=== PATIENT | male | born 1975 | race Caucasian/White ===

== ENCOUNTER 2017-02-26 18:19 | Emergency (ER) | payer OTHER, BC ==
[~2017-02-26] VITALS: Ht 172.7 cm; Wt 79.0 kg
[~2017-02-26 18:19] MED LIST: ALPR-411 PO; CLB200 PO; DIPH25CA65 PO; FLX5 PO; LDDP5 TD; OXYC-88 PO
[2017-02-26 18:28] VITALS: TEMP 36.9; Ht 172.7 cm; Wt 79.0 kg
[2017-02-26] MEDS ORDERED: CYCLOBENZAPRINE HCL 10 MG TAB PO STA (19:02)
[2017-02-26] MEDS ORDERED: KETOROLAC TROMETHAMINE 60 MG/2 ML VIAL IM STA (19:02)
[2017-02-26] MEDS ORDERED: MoRPHine SULFATE 10 MG/ML CARP/VIAL IM STA (19:02)
--- NOTE | 2017-02-26 19:06 | EMERGENCY ROOM VISIT NOTE ---
History Report prepared by Leticia: [place] Under the Supervision of: Dr. Yesenia Galaviz M.D. First contact with patient: 18:43 Chief Complaint: BACK PAIN Stated Complaint: BACK PAIN,BACK INJURY,WC History of Present Illness The patient is a 41 year old male who presents to the Emergency Room with complaints of persistent low left back pain that started around 4 and a half hours ago. He says that he thinks he injured himself again, as he had a similar back injury last year. The patient states that he followed-up with orthopedics and was diagnosed at that time with a herniated disc L4-L5. He says that the injury was work-related, just like today. 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 He adds that he felt a bit of burning in his back as well. The patient says that he was brought in via a wheelchair. He adds that he just had an injection for his back last week. He denies losing control of his bladder or bowel. Source of History: patient Onset: 4.5 hours ago Position: back (low left) Symptom Intensity: sudden onset Timing: other (persistent) Note: Associated symptoms: Bilateral leg tingling, left arm tingling. Denies losing control of bladder or bowel. Review of Systems See HPI for pertinent positives & negatives. A total of 10 systems reviewed and were otherwise negative. Past Medical & Surgical Medical Problems: (1) Anxiety Family History Seizures Social History Smoking Status: Never Smoker Alcohol Use: occasionally Marital Status: in relationship Housing Status: lives with family Occupation Status: employed Current/Historical Medications Scheduled Celecoxib (Celebrex), 200 MG PO QAM Cyclobenzaprine HCl (Cyclobenzaprine HCl), 10 MG PO TID Lidocaine (Lidocaine), 1 PATCH TD QAM Scheduled PRN Alprazolam (Xanax), Unknown Dose PO UD PRN for MOOD Diphenhydramine Hcl (Benadryl Allergy), 1 CAP PO UD PRN for BEE STING Oxycodone/Acetaminophen 10MG/325MG (Oxycodone/Acetaminophen 10MG/325MG), 1 TAB PO Q6H PRN for Pain Allergies Coded Allergies: BEE STING (Verified Allergy, Unknown, WEAKNESS, 8/26/16) Physical Exam Vital Signs Date Time Temp Pulse Resp B/P (MAP) Pulse Ox O2 Delivery O2 Flow Rate FiO2 02/26/17 21:13 68 16 118/68 96 02/26/17 19:24 64 22 122/70 97 Room Air 02/26/17 18:28 36.9 93 20 117/83 97 Room Air Physical Exam Vital signs reviewed. General: Well-appearing 41 year old male, in mild distress. HEENT: No scleral icterus, PERRLA, neck supple. Atraumatic. Cardiovascular: Regular rate and rhythm, no extra sounds. Pulmonary: Clear to auscultation bilaterally, normal work of breathing. Abdomen: Soft, nontender, nondistended, positive bowel sounds. Musculoskeletal: Tenderness to palpation over the lumbar paraspinous muscles bilaterally. Mild tenderness to palpation along the low lumbar spine. No stepoff , deformity, or swelling. No peripheral edema. Neurologic: Patient awake alert and oriented x 3. Cranial nerves 2 through 12 grossly intact. Positive straight leg raise bilaterally. Equal strength bilaterally in lower extremities. Skin: Warm, dry, no rash Medical Decision & Procedures ER Provider Diagnostic Interpretation: L-SPINE MIN 4 VIEWS ROUTINE CLINICAL HISTORY: Lumbar back pain radiating into left lower extremity. Injury. COMPARISON: Lumbar spine radiograph and CT of the lumbar spine January 04, 2016. FINDINGS: Alignment of the lumbar spine is anatomic. There is no acute fracture. Vertebral body heights are maintained. Disc spaces are preserved. There is mild multilevel endplate osteophytosis. Sacroiliac joints are intact. IMPRESSION: 1. No acute lumbar spine fracture or subluxation. 2. Mild multilevel degenerative disc disease of the lumbar spine. Electronically signed by: Lenin Farrell M.D. 02/26/2017 8:11 PM Dictated Date/Time: 02/26/2017 8:10 PM Medications Administered Medications (Trade) Dose Ordered Sig/Jany Route Start Time Stop Time Status Last Admin Dose Admin Cyclobenzaprine HCl (Flexeril Tab) 10 mg NOW STAT PO 02/26/17 19:02 02/26/17 19:04 DC 02/26/17 19:16 10 MG Morphine Sulfate (MoRPHine SULFATE INJ) 10 mg NOW STAT IM 02/26/17 19:02 02/26/17 19:04 DC 02/26/17 19:18 10 MG Ketorolac Tromethamine (Toradol Inj) 60 mg NOW STAT IM 02/26/17 19:02 02/26/17 19:04 DC 02/26/17 19:17 60 MG Acetaminophen/ Hydrocodone Bitart ([place] 5/325mg Home Pack) 1 homepack UD ONCE PO 02/26/17 20:45 02/26/17 20:46 DC 02/26/17 21:11 1 HOMEPACK Cyclobenzaprine HCl (FLEXERIL 10MG Home Pack) 1 homepack UD ONCE PO 02/26/17 20:45 02/26/17 20:46 DC 02/26/17 21:11 1 [facility] 1899: Past medical records reviewed. The patient was evaluated in room A3. A complete history and physical examination was performed. 1901: Ordered Toradol Inj 60 mg IM, Morphine Sulfate Inj 10 mg IM, Flexeril Tab 10 mg PO. Medical Decision Differential diagnosis: Etiologies such as musculoskeletal, disc herniation, fracture, aortic disease, metastatic disease, cord compression, discitis, infection, renal colic, gastrointestinal, acute exacerbation of chronic back pain, sciatica, cauda equina, as well as others were entertained. This patient was evaluated and appeared to be in significant discomfort. Patient was given IM morphine, oral Flexeril and 60 mg of IM Toradol. Lumbar spine x-rays were performed and reveal no acute fracture or dislocation. The patient had an MRI at the end of 2015 which was reviewed. He does have a L4/L5 disc herniation. At this time the patient has no symptoms of cauda equina. He is established with Dr. Ford of pain management. He was encouraged to make an appointment with his orthopedic spine surgeon as well as Dr. Ford. He was discharged on a prednisone taper and given a short prescription for hydrocodone and Flexeril. He was advised not to drive on these medications. He was given 1 week off of work. He will return to the ER for worsening of symptoms or any medical concerns. Medication Reconcilliation Current Medication List: was personally reviewed by me Blood Pressure Screening Patient's blood pressure: Normal blood pressure Impression Primary Impression: Lumbar back pain Scribe Attestation The scribe's documentation has been prepared under my direction and personally reviewed by me in its entirety. I confirm that the note above accurately reflects all work, treatment, procedures, and medical decision making performed by me. Departure Information Referrals No Doctor, Assigned (PCP) Patient Instructions [facility]
--- NOTE | 2017-02-26 20:12 | DIAGNOSTIC IMAGING REPORT ---
L-SPINE MIN 4 VIEWS ROUTINE CLINICAL HISTORY: Lumbar back pain radiating into left lower extremity. Injury. COMPARISON: Lumbar spine radiograph and CT of the lumbar spine January 04, 2016. FINDINGS: Alignment of the lumbar spine is anatomic. There is no acute fracture. Vertebral body heights are maintained. Disc spaces are preserved. There is mild multilevel endplate osteophytosis. Sacroiliac joints are intact. IMPRESSION: 1. No acute lumbar spine fracture or subluxation. 2. Mild multilevel degenerative disc disease of the lumbar spine. Electronically signed by: Lenin Farrell M.D. 02/26/2017 8:11 PM Dictated Date/Time: 02/26/2017 8:10 PM
[2017-02-26] MEDS ORDERED: NORCO 5/325MG HOME PACK PO ONE (20:45)
[2017-02-26] MEDS ORDERED: FLEXERIL HOME PACK 10 MG VIAL PO ONE (20:45)
[2017-02-26 21:13] VITALS: BP 118/68; PULSE 68; O2SAT 96
== END 2017-02-26 21:14 | disposition home or self-care (01) ==
LOC: C.EDB 18:21 → C.EDA 21:14
DX: M54.5 Low back pain (principal); M51.26 Other intervertebral disc displacement, lumbar region; F41.9 Anxiety disorder, unspecified; Z82.0 Family history of epilepsy and other diseases of the nervous system

== ENCOUNTER 2018-11-18 12:23 | Observation (INO) ==
--- OUTSIDE RECORDS SUMMARY | 2018-11-18 12:26 | External Medical Summary | Continuity of Care Document ---
:1975 Author Name Nuha Strickland, Provider Address Unavailable Unavailable , Care Team Providers Name Role Phone Dominic Joe II, DO Unavailable [email or web address] [email or web address], [email or web address] Unavailable Unavailable Unavailable Unavailable Unavailable Problems Active medical history not documented Allergies and Adverse Reactions Allergy history not documented Medications Medications not documented Procedures Procedures not documented Immunizations Immunizations not documented Plan of Treatment Planned Observations Planned Goals not documented Results No Known Results Results not documented Encounters Appointment; Dominic Joe II, DO 08-Sep-2018 14:20 Encounter Diagnosis: Problem not documented
[2018-11-18] MEDS ORDERED: HYDROmorphone INJ 0.5 MG/0.5 ML SYR IV STA (13:43)
[2018-11-18] MEDS ORDERED: KETOROLAC TROMETHAMINE 15 MG/ML VIAL IV STA (13:43)
[2018-11-18] MEDS ORDERED: ONDANSETRON INJ 2 MG/ML 2 ML VIAL IV STA (13:43)
--- NOTE | 2018-11-18 14:38 | XRay Report ---
LUMBAR SPINE 3 VIEWS HISTORY: back pain eval for fx COMPARISON: Lumbar spine 02/26/2017. FINDINGS: There is no fracture. No subluxation. Mild disc space narrowing at L4-L5 and L5-S1. This i s similar to the prior study. IMPRESSION: No fracture or subluxation within the lumbar spine. Mild degenerative disc disease within the lower l umbar spine, unchanged. Electronically signed by: Jamison Noguera M.D. 11/18/2018 2:37 PM
[2018-11-18] MEDS ORDERED: HYDROmorphone INJ 1 MG/ML SYRINGE IV STA (14:44)
[2018-11-18] MEDS ORDERED: SODIUM CHLORIDE 0.9% 1000ML 1,000 ML IV ONE (14:44)
--- NOTE | 2018-11-18 16:29 | History & Physical Report ---
Date of Service November 18, 2018 Assessment & Plan (1) Intractable back pain: Patient has had DJD of lumbar spine over the last 3 years but it had largely been controlled/quiescent of late. However, the patient acutely developed severe lumbar back pain today with radicular symptoms on the left side after he had been moving wood at his mother/father's home. He had severe, intermittent episodes of back pain with spasm during my assessment and was unable to walk due to this pain. While finishing the admission I gave him baclofen 10mg PO x 1 with some relief of symptoms. Prior to that he had received dilaudid for total of 1.5mg and toradol w/o relief. I am concerned he has radiculopathy from L5-S1 DJD / herniated disc on the left side. He does not have red flags on history or exam to suggest acute cauda equina syndrome, etc. Plan - * decadron 6mg IV x 1 now * then decadron 6mg IV q6h at least for 12-24 hours * tylenol 1gm TID * zantac BID for GI prophylaxis given the steroid use * dilaudid 0.5mg IV q3h prn * baclofen 10mg po q8h prn muscle spasm * k-pad heat * gabapentin 100mg TID first dose tonight for neuropathic pain * toradol 30mg IV q6h prn * pain management consult requested * MRI lumbar spine to further delineate his anatomy and problem areas I offered to consult orthopedics spine however he and his declined. They would prefer to consult with neurosurgery after discharge if he needs anything surgical in the future. OOB to chair as tolerated tonight/tomorrow. Will need PT/OT evaluations. Present on Admission?: Yes (2) Degenerative disc disease, lumbar: history of, now with recurrent severe back pain- see above in "intractable back pain". Present on Admission?: Yes (3) Spasm of back muscles: see discussion above in "intractable back pain" baclofen, k-pad heat, steroids, etc Present on Admission?: Yes (4) Anxiety: continue home prozac he admits to noncompliance with this medication at home (5) Tobacco use disorder: offered nicoderm patch - declined by patient director counseling bureau to quit (6) Hypokalemia: replace repeat level AM (7) DVT prophylaxis: SCDs for now in the event he does indeed have herniated disc and needs an injection, etc place on observation status for now updated with plan of care History of Present Illness Chief Complaint: back pain Primary Care Provider: Britt De La Rosa 43yo male with history of lumbar spine disease s/p steroid injections in the past (2016 and earlier) who presents with acute back pain starting this am about 0930. He was moving wood at his parent's home when the pain started. The logs/wood were not heavy however he moved about 15 pieces when the pain started. Prior to this his back had been feeling well over the last few weeks/months. Pain is over the lumbar spine with some paraspinal pain on the left side. He has had groin pain on the left side starting in the ER after his x-rays were completed. He reports mild left heel discomfort/numbness. However he denies classic sciatica symptoms with pain going down the entire left leg. No numbness in other locations. Throughout the encounter he has had waves of muscle spasm and shouts out in pain/agony from such. No bowel/bladder incontinence today. No fevers or chills. Dr Palafox previously performed his lumbar steroid injections several years ago at [facility]. Patient never required surgery for his prior lumbar DJD. Allergies Allergy/AdvReac Type Severity Reaction Status Date / Time No Known Allergies Allergy Unverified 11/18/18 13:07 Home Medications Home Medications Medication Instructions Recorded Confirmed Type fluoxetine 20 mg PO QAM 11/18/18 11/18/18 History hydrocodone-acetaminophen [[place]] 1 tab PO UD PRN 11/18/18 11/18/18 History Past Med/Surg History Medical History Herniated disc Anxiety (Chronic) Surgical History History of selective injection of anesthetic agent around lumbar nerve root Family History Mother Seizure Father Diabetes DJD (degenerative joint disease), lumbar Social History Preferred Language: Tunisian marital status: marital status details: Nayeli Hilliard with (4 kids) Current Living Situation: Spouse current occupational status: employed 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 Feels Safe at Home: Yes Smoking Status: Current some day smoker Tobacco Type: cigarettes Age Started Using Tobacco: 18 Cigarettes Per Day: <1 Hx Alcohol Use: Yes Alcohol type: beer Alcohol Intake Frequency: Holidays/Special Occasions Hx Substance Use: Yes substance use type: marijuana Review of Systems Constitutional: no fever, no weight loss and no weight gain Eyes: no worsening vision Ear, Nose, Mouth, Throat: no sore throat and no dysphagia Respiratory: no cough and no dyspnea Cardiovascular: no chest pain at rest Gastrointestinal: no abdominal pain, no nausea and no vomiting Genitourinary: no dysuria Musculoskeletal: + back pain Integumentary: no rash Neurologic: + paresthesia (left foot) Psychiatric: no depression and no anxiety Endocrine: no diabetes Hematologic / Lymphatic: no easy bleeding and no easy bruising Physical Exam Constitutional: well developed, well nourished and + acute distress (cries out in pain about every 2-3 minutes); no altered mental status Eyes: PERRL ENMT: external ear and nose normal, oropharynx normal Neck: trachea midline, no thyromegaly Respiratory: normal respiratory effort, lungs clear to auscultation Cardiovascular: Rate/Rhythm: regular rate and regular rhythm Heart Sounds: normal S1 and normal S2; no murmur Vessels: posterior tibial pulses present and dorsalis pedis pulses present; no JVD Gastrointestinal (Abdomen): normal bowel sounds, soft, nontender, no hepatosplenomegaly Musculoskeletal: back - no thoracic spine tenderness to palpation. Lumbar spine - exquisite pain over L4/L5 area with pain to palpation. Pain over paraspinal region on left with palpable spasm. Any movement of his left leg (passive) causes severe pain in low back. I cannot perform a straight leg raise on left due to pain. However, he denies radicular pain with passive flexion of the hip. I am able to place the right leg through normal passive ROM without discomfort. Strength all muscle groups of b/l legs 5/5 including hip flexion, knee extension, and ankle dorsiflexion/plantarflexion. Skin: no rashes, warm and dry tattoos present Neurologic: deep tendon reflexes 2+ bilaterally (patellar and achilles b/l (modestly brisk b/l)); no focal motor deficits (strength 5/5 all muscle groups of B/l LEs) Motor/Sensory: + sensory deficit (left heel w/ decreased sensation) sensation nl to light touch L3, L4, L5 dermatomes Results & Data Vital Signs (Past 12 Hours) Vital Signs Pulse Pulse Resp BP BP Pulse Ox 11/18/18 14:43 51 L 20 104/67 96 11/18/18 14:00 64 18 118/70 98 11/18/18 12:49 65 20 128/76 100 Laboratory Results Laboratory Results - last 24 hr 11/18/18 11/18/18 11/18/18 12:41 12:41 12:41 WBC 7.04 RBC 5.01 Hgb 15.6 Hct 44.3 MCV 88.4 MCH 31.1 MCHC 35.2 RDW Std Deviation 40.4 RDW Coeff of [place] 12.6 Plt Count 205 MPV 12.6 H Immature Gran % (Auto) 0.1 Neut % (Auto) 59.3 Lymph % (Auto) 31.0 [place] % (Auto) 7.2 Eos % (Auto) 2.3 Baso % (Auto) 0.1 Immature Gran # (Auto) 0.01 Neut # (Auto) 4.17 Lymph # (Auto) 2.18 [place] # (Auto) 0.51 Eos # (Auto) 0.16 Baso # (Auto) 0.01 PT 10.4 INR 1.0 Sodium 139 Potassium 3.4 L Chloride 109 H Carbon Dioxide 25 Anion Gap 5.0 BUN 14 Creatinine 0.84 Est Cr Clr Drug Dosing 124.1 Est GFR ( Amer) 124.3 Est GFR (Non-Af Amer) 107.2 BUN/Creatinine Ratio 16.6 Glucose 103 H Calcium 8.6 Magnesium 2.2 Diagnostic Findings lumbar spine x-rays - IMPRESSION: No fracture or subluxation within the lumbar spine. Mild degenerative disc disease within the lower lumbar spine, unchanged. Code Status & VTE Plan Code Status full code VTE Prophylaxis Plan VTE Prophylaxis will be ordered: Yes PG Care Time/CCT Total # of Minutes Spent Total Time Spent with Patient: Total time spent is greater than 50% in coordination of care (as documented) at patient's floor/unit and/or counseling patient:
[2018-11-18] MEDS ORDERED: BACLOFEN 10 MG TAB PO STA (16:31)
[2018-11-18] MEDS ORDERED: DEXAMETHASONE SOD INJ 4 MG/ML VIAL IV STA (16:56)
--- NOTE | 2018-11-18 17:08 | Emergency Department Note ---
Entered by Yovana Walsh acting as a scribe for Andrew Tracy MD History of Present Illness General Chief complaint: Back Injury/Pain Stated complaint: back pain Source: patient Mode of arrival: ambulatory Limitations: no limitations History of Present Illness Provider complaint: Back Injury Onset (ago): hour(s) 4 Location: foot, lower extremity and left Radiation: extremity (left leg) Severity: severe Pain Consistency: + constant Maximum Pain Intensity: 10 Current Pain Intensity: 10 Quality: + sharp Relieved By: + none Exacerbated By: + movement Associated symptoms: + weakness (due to the pain) and + other (- abdominal pain, - fecal or urinary incontinence, +numbness in left heel); no fever/chills and no nausea/vomiting Treatments prior to arrival: none The patient is a 43 year old male who presents to the Emergency Department via ambulance after injuring his back. 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 He describes the pain as sharp and radiating down his left leg. The patient did not experience any urinary or fecal incontinence. The patient also states that his left heel is numb which she describes as a tingling feeling. The patient feels weak from the pain and the pain worsens with movement. The patient has a prior history of L4-L5 disc herniation. He states the pain feels very similar to that. The fever denies any stomach pain, fever, or vomiting. The patient denies having saddle anesthesia. The patient rates his pain as a 7 out of 10 in severity. He states he did not fall today or lift the piece of wood. Home Medications Home Medications Medication Instructions Recorded Confirmed Type fluoxetine 20 mg PO QAM 11/18/18 11/18/18 History hydrocodone-acetaminophen [[place]] 1 tab PO UD PRN 11/18/18 11/18/18 History Allergies Allergy/AdvReac Type Severity Reaction Status Date / Time No Known Allergies Allergy Unverified 11/18/18 13:07 Past Med/Surg History Medical History Herniated disc Anxiety (Chronic) Surgical History History of selective injection of anesthetic agent around lumbar nerve root Family History Mother Seizure Father Diabetes DJD (degenerative joint disease), lumbar Social History Preferred Language: [place] marital status: marital status details: Nayeli Hilliard with (4 kids) Current Living Situation: Spouse current occupational status: employed 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 and A total of 10 systems reviewed and were otherwise negative Physical Exam Vital Signs Vital Signs - 24 hr 11/18/18 12:49 11/18/18 14:00 11/18/18 14:43 Sepsis Recent Fever Within 48 Hours No Sepsis New/Unexplained Change in Mental Status No Sepsis Action Taken by Nursing No Action Required Pulse Rate 65 Pulse Rate [Left Finger] 64 51 L Respiratory Rate 20 18 20 Blood Pressure 128/76 Blood Pressure [Left Arm] 118/70 104/67 Blood Pressure Mean 93 Blood Pressure Mean [Left Arm] 86 79 Pulse Oximetry 100 98 96 Oxygen Delivery Method Room Air Room Air Room Air Constitutional: Vital signs reviewed. Eyes: Pupils are equal round reactive to light. Conjunctiva are noninjected. ENT: Pharynx is clear without erythema or exudate. Mucous membranes are moist. Neck supple without meningeal signs. Respiratory: Clear to auscultation bilaterally. Breath sounds are equal bilaterally. Cardiovascular: Regular rate and rhythm. No rubs or gallops. GI: Soft, nondistended and nontender. Bowel sounds are present. Musculoskeletal: No peripheral edema. No lower extremity tenderness. Integumentary: No cyanosis. Neurological: The patient is awake and alert. No focal deficits. Difficult to assess motor strength due to pain but he moves both legs at all joints. Sensati on is intact throughout the lower extremities including the left heel and DTRs 2+ in ankles and knees. Psychiatric: Normal affect. Course 1336: The patient was evaluated in room A09B. A physical exam was performed. 1442: I reassessed the patient. He rates his pain as a 10 out of 10 in severity. 1510: I reassessed the patient and discussed going home because he stated he feels better. The patient tried to get up and had a significant increase in pain and felt that he will not be able to take care of himself at home. 1612: I spoke with Dr. Paul, [facility] Hospitalist, about the patient's case and he agreed to accept the patient for further evaluation. 1618: The patient was admitted. Consultations Consultation #1: 1612: I spoke with Dr. Paul, [facility] Hospitalist, about the patient's case and he agreed to accept the patient for further evaluation. Time: 16:12 Administered Medications Discontinued Medications Baclofen (Lioresal) 10 mg PO ONE STA Stop: 11/18/18 16:32 Last Admin: 11/18/18 16:51 Dose: 10 mg Documented by: [id number] Hydromorphone HCl (Dilaudid) 0.5 mg IV NOW STA Stop: 11/18/18 13:44 Last Admin: 11/18/18 13:56 Dose: 0.5 mg Documented by: [id number] Hydromorphone HCl (Dilaudid) 1 mg IV NOW STA Stop: 11/18/18 14:45 Last Admin: 11/18/18 15:00 Dose: 1 mg Documented by: [id number] Sodium Chloride (Nss 1000ml) 1,000 mls @ 999 mls/hr IV .Q1H1M ONE Stop: 11/18/18 15:44 Last Infusion: 11/18/18 16:17 Dose: 0 mls/hr Documented by: [id number] Admin: 11/18/18 15:00 Dose: 999 mls/hr Documented by: [id number] Ketorolac Tromethamine (Toradol) 10 mg IV ONE STA Stop: 11/18/18 13:44 Last Admin: 11/18/18 13:56 Dose: 10 mg Documented by: [id number] Ondansetron HCl (Zofran) 4 mg IV NOW STA Stop: 11/18/18 13:44 Last Admin: 11/18/18 13:56 Dose: 4 mg Documented by: [id number] Medical Decision Making Differential Diagnosis Differential Diagnosis: Lumbar disc disease, radiculopathy, pathologic fracture, Cauda equina syndrome, strain Medical Records Attestation: I reviewed the patient's medical records. I did perform a limited focused review of portions of the patient's old chart on the electronic medical record. The patient was admitted in December 2015 for intractable back pain after lifting something heavy. The patient was treated with Dilaudid during the hospitalization placed on a steroid when discharged. Home Medications Current Medication List: was personally reviewed by me Imaging Data Attestation: I personally reviewed and interpreted this imaging study as follows: Radiologist's Impression: Radiology results as stated below per my review and the radiologist's interpretation: LUMBAR SPINE 3 VIEWS HISTORY: back pain eval for fx COMPARISON: Lumbar spine 02/26/2017. FINDINGS: There is no fracture. No subluxation. Mild disc space narrowing at L4-L5 and L5-S1. This is similar to the prior study. IMPRESSION: No fracture or subluxation within the lumbar spine. Mild degenerative disc disease within the lower lumbar spine, unchanged. Electronically signed by: Jamison Noguera M.D. 11/18/2018 2:37 PM Blood Pressure Blood Pressure Findings: Normal blood pressure MDM Narrative I did evaluate the patient as noted above. The patient is presenting with left- sided low back pain with some paresthesias to his left foot. He has prior history of disc herniation and states it feels similar. His pain is worse with any type of movement. He has no symptoms suggestive of cauda equina syndrome and appears to be neurologically intact. He was brought in by ambulance. IV access was established by the paramedics. I did treat the patient with Dilaudid 0.5 mg IV and Zofran 4 mg IV. I did order and personally reviewed the images of the patient's lumbar spine x-rays as described above. He does have some disc disease but no evidence of pathologic fracture. I did reassess the patient. He states that he feels worse after he came back from x-ray. He was given Dilaudid 1 mg IV. I did reassess the patient. He did state he felt better. We were going to discharge him but when he attempted to get up he had significantly wor se pain and felt he could not take care of himself at home. I therefore discussed the case with the employment evaluator/case manager and hospitalist for inpatient care. Impression & Plan Intractable back pain, Degenerative disc disease, lumbar Discharge Plan Visit Data Chief Complaint: Back Injury/Pain Stated Complaint: back pain ED Provider: Andrew Tracy Discharge Problem: Intractable back pain, Degenerative disc disease, lumbar Patient Disposition: Being Evaluated by Hospitalist Forms Stand Alone Forms: [facility] Prescriptions Prescriptions: No Action hydrocodone-acetaminophen [[place]] 5-325 mg Tablet 1 tab PO UD PRN (Reason: Pain) RF: 0 fluoxetine 20 mg capsule 20 mg PO QAM RF: 0 Referrals Referrals: Britt De La Rosa [Primary Care Provider] - The scribe's documentation has been prepared under my direction and personally reviewed by me in its entirety. I confirm that the note above accurately reflects all work, treatment, procedures, and medical decision making performed by me.
[2018-11-18 17:37] LABS: Basophils # (auto) 0.01 K/uL (0-0.2); Basophils % (auto) 0.1 %; Eosinophils # (auto) 0.16 K/uL (0-0.5); Eosinophils % (auto) 2.3 %; Hematocrit (blood only) 44.3 % (42-52); Hemoglobin 15.6 g/dL (14.0-18.0); Immature Granulocytes # (auto) 0.01 K/uL (0.00-0.02); Immature Granulocytes % (auto) 0.1 %; Lymphocytes # (auto) 2.18 K/uL (1.2-3.4); Mean Corpuscular Hgb Conc 35.2 g/dL (32-36); Mean Corpuscular Volume 88.4 fL (80-100); Mean Platelet Volume 12.6 fL (7.4-10.4); Monocytes # (auto) 0.51 K/uL (0.11-0.59); Monocytes % (auto) 7.2 %; Neutrophils # (auto) 4.17 K/uL (1.4-6.5); Neutrophils % (auto) 59.3 %; Platelet Count 205 K/uL (130-400); RDW Coefficient of Variation 12.6 % (11.5-14.5); RDW Standard Deviation 40.4 fL (36.4-46.3); Red Blood Count 5.01 M/uL (4.7-6.1); White Blood Count 7.04 K/uL (4.8-10.8)
[2018-11-18 17:48] LABS: BUN Creatinine Ratio 16.6 (10-20); Calcium 8.6 mg/dl (8.5-10.1); Creatinine Clr Calc Pharmacy 124.1 ml/min; Est GFR (African American) 124.3; Est GFR (Non-African American) 107.2; Magnesium 2.2 mg/dl (1.8-2.4); Potassium 3.4 mmol/L (3.5-5.1)
[2018-11-18 17:52] LABS: Prothrombin Time 10.4 Seconds (9.0-12.0)
[2018-11-18] MEDS ORDERED: POTASSIUM CHLORIDE 20 MEQ TABCR PO STA (18:54)
[2018-11-18] MEDS: KETOROLAC 30 MG/ML VIAL IV PRN (19:34)
--- NOTE | 2018-11-18 20:34 | Magnetic Resonance Report ---
MR lumbar spine wo con CLINICAL HISTORY: 43 years-old Male presenting with acute LBP; s1 dermatome numbness on left. TECHNIQUE: Multisequence, multiplanar MR imaging of the lumbar spine was performed without the use of intravenous contrast. IV contrast: None. COMPARISON: Plain radiographs from earlier today and MR from 03/21/2016. FINDINGS: Localizer images: Unremarkable. Normal lumbar lordosis. Vertebral bodies maintain normal height, alignment, and bone marrow signal in tensity. Intervertebral discs preserved with the exception of L4-5, where there is mild intervertebra l disc height loss accompanied by desiccation. Annular fissure is noted at this level. There is no ne ural foraminal or spinal canal narrowing at any of the levels apart from L4-5. At L4-5, mild broad-ba sed disc protrusion mildly effaces the ventral thecal sac and the lateral recesses. There is also sli ghtly eccentric greater effacement of the right neural foramen. Mild bilateral neural foraminal narro wing minimally greater on the right. Spinal cord terminates in good position at T12. Cauda equina normal morphology. No paraspinal muscle edema. T2 flow-voids within the vasculature preserved. Remaining visualized soft tissues within val l limits. IMPRESSION: Focal degenerative changes at L4-5 with an annular fissure. Mild effacement of the lateral recesses a nd bilateral neural foramina. No evidence of severe spinal canal stenosis. Electronically signed by: Giovani Hollins M.D. 11/18/2018 8:32 PM
[2018-11-18] MEDS: GABAPENTIN 100 MG CAP PO SCH (20:49)
[2018-11-18] MEDS: ACETAMINOPHEN 500 MG TAB PO SCH (20:49)
[2018-11-18] MEDS: HYDROmorphone INJ 0.5 MG/0.5 ML SYR IV PRN (20:53)
[2018-11-18] MEDS: ONDANSETRON INJ 2 MG/ML 2 ML VIAL IV PRN (20:57)
[2018-11-19] MEDS ORDERED: BACLOFEN 10 MG TAB PO PRN
[2018-11-19] MEDS: DEXAMETHASONE SOD PHOSPHATE 6 MG in SYRINGE 0 ML IV SCH ×3 (00:19→10:33)
[2018-11-19] MEDS: HYDROmorphone INJ 0.5 MG/0.5 ML SYR IV PRN ×3 (00:38→10:33)
[2018-11-19] MEDS ORDERED: BUPIVACAINE 0.5 % 5 MG/1 ML MPF 30ML VIAL ONE (07:52)
[2018-11-19] MEDS ORDERED: TRIAMCINOLONE ACET 40 MG/ML VIAL ONE (07:52)
[2018-11-19] MEDS: BACLOFEN 10 MG TAB PO PRN ×2 (08:22→18:41)
--- NOTE | 2018-11-19 08:37 | Pain Management Consultation ---
Date of Consultation November 19, 2018 Assessment & Plan (1) Spasm of back muscles: 1. X-ray and MRI studies were reviewed with the patient. There is no acute lumbar disc herniation or evidence of central spinal canal or foraminal stenosis of significance based on imaging studies. Likely etiology of myofascial spasm/acute strain was discussed 2. Recommend trigger point injections at today's visit and he was agreeable. Consent was obtained after discussing the inherent risks and potential benefits. Refer to procedure note below. 3. Will increase baclofen to 20 mg every 8H 4. Continue with IV Decadron and would recommend discharge with Medrol Dosepak 5. Would not recommend pursuing lumbar GHAZALA at this time as he has no evidence of radiculopathy. Consideration of further interventional treatment in the outpatient setting pending response 6. We discussed the role his chronic anxiety plays in myofascial pain. He was encouraged to discuss further treatment of his anxiety and insomnia with his family care physician upon discharge. TRIGGER POINT INJECTION Diagnosis: Myofascial pain with spasm Side/Level injected: Right lumbar paravertebral 2, left paravertebral 21, right quadratus lumborum x2, left quadratus lumborum x2 Surgeon: Ifeanyi MILLER Prior to starting, the Patients diagnosis and the procedure were reviewed with the patient in detail. Possible risks and complications including infection, bleeding, damage to surrounding structures and increased pain were discussed. Alternative therapies were also reviewed. Patients questions were answered and they agreed to proceed. Informed consent was obtained. Allergies and medication list was reviewed. The patient was brought to the procedure room and placed in prone position. Immediately prior to starting the procedure, a ``time out was conducted with the staff and the patient where the patient was identified, proposed procedure was verified, consent was reviewed and the proper site for the planned procedure was identified. Patient was not given any intravenous sedation and constant verbal contact was maintained throughout the procedure. On examination, no signs of skin breakdown or infection were noted at the injection site. The site was cleansed with ChloraPrep. Palpation over the site produced patients typical pain. Using an 1.5 inch 25-gauge needle, the above muscles were injected in similar fashion after negative aspiration for blood in fanlike fashion with 1-1.5 mL of a combination of 7 mL of 0.5% bupivacaine containing 40 mg of Kenalog and 30 mg of ketorolac without complication. Needle was withdrawn and hemostasis noted. Band-Aid was applied where needed. Patient tolerated the procedure uneventfully without complications. Present on Admission?: Yes (2) Intractable back pain: Present on Admission?: Yes (3) Myofascial pain: Present on Admission?: Yes (4) Anxiety: Present on Admission?: Yes History of Present Illness Reason for Consultation: Intractable Low Back Pain Requesting Physician: Steve Vargas MD Attending Physician: Jan Syed DO History of Present Illness Mr. Rush is a 43 year old white male who was admitted due to acute onset of axi al low back pain. The patient reports that he was helping his parents move some wood which was not heavy and minimally repetitive. 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 This led to the ambulance being summoned and transferred to the emergency room for evaluati on. Patient has had persistent intermittent episodes of sharp, shooting and spasming type pain in the axial lumbar spine without a radicular or radiating component. He does describing some numbness/tingling sensation affecting the left heel but he denies a true radicular pattern to any pain or paresthesia complaints. The patient reports a history of intermittent similar axial low back pain over the past few years. 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 Patient is currently rating his pain between a 6-9/10. He is able to find a comfortable position with minimal discomfort. Any movement exacerbates his pain. Patient reports that he had prior epidural steroid injection performed by Dr. Ford on multiple occasions a few years ago. His symptoms have been relatively well controlled since that time. Patient denies any bowel or bladder incontinence or saddle anesthesias. He has participated in physical therapy in the past without significant noted improvement. Patient has history of long- standing anxiety. He is inconsistent with dosing of his anxiety medication. The patient further reports poor sleep quality and quantity due to mind racing activities of chronic duration. Patient denies radiation of pain into the abdominal, or groin region. He reports minimal radiation into the gluteal region bilaterally. Patient has no further constitutional complaints at this time. Plan of care discussed with Dr. Beth Perry. Pain Assessment Full Body Front + Back: 1. Axial low back pain left greater than right sided Pain scale - at its best (0-10): 6 Pain scale - at its worst (0-10): 9 Allergies Allergy/AdvReac Type Severity Reaction Status Date / Time No Known Allergies Allergy Unverified 11/18/18 13:07 Home Medications Home Medications Medication Instructions Recorded Confirmed Type fluoxetine 20 mg PO QAM 11/18/18 11/18/18 History hydrocodone-acetaminophen [[place]] 1 tab PO UD PRN 11/18/18 11/18/18 History Pain History Pain Intensity Pain scale - at its best (0-10): 6 Pain scale - at its worst (0-10): 9 Patient History Medical History Myofascial pain Hypokalemia Tobacco use disorder Intractable back pain (Acute) Degenerative disc disease, lumbar (Acute) Herniated disc (Chronic) Spasm of back muscles (Acute) Back strain (Acute) Anxiety (Chronic) Surgical History History of selective injection of anesthetic agent around lumbar nerve root (Resolved) Family History Mother Seizure Father Diabetes DJD (degenerative joint disease), lumbar Social History Preferred Language: Ukrainian Communication Ability: Effective 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 Beliefs That Will Affect Care: None marital status: marital status details: Nayeli Hilliard with (4 kids) Current Living Situation: Family current occupational status: employed 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 Other Information That Helps Us Care for You: No Feels Safe at Home: Yes Safety Concerns: Feels Safe At This Time Smoking Status: Light tobacco smoker Tobacco Type: cigarettes Age Started Using Tobacco: 18 Cigarettes Per Day: 1 per week Do You Dip or Chew Tobacco: No Second Hand Exposure: Yes Tobacco Cessation Education Requested by Patient: No Hx Alcohol Use: Yes Alcohol type: beer Alcohol Intake Frequency: H olidays/Special Occasions Hx Substance Use: Yes substance use type: marijuana Last Used Substance: Days (ago) Physical Exam Physical Exam: General: Patient sitting quietly in exam room in no acute distress. Speech and thought process appropriate. Mood and affect appropriate. Patient appears to be significantly anxious. Cognition intact. Patient appears to have discomfort with positional change from supine to sitting upon entering the room accompanied by nursing staff. Head: Normocephalic and atraumatic. ENT: No evidence of nasal or oral mucosal lesions. Mucous membranes are moist. Eyes: Pupils equal round reactive to light. Neck: Supple without adenopathy and full range of motion. Abdomen: Soft and nondistended. No organomegaly. Bowel sounds active. Back/spine: Slight loss of lordosis. Nontender over the midline. No focal facet or SI joint tenderness. Patient tender to palpation in the paravertebral musculature of the lower lumbar spine extending into the quadratus lumborum bilaterally. Slightly hyperalgesic response. There is evidence of spasm and myoneural trigger points evidenced upon palpation. Limited range of motion in all planes with apprehension. Lower extremities: SLR increased axial low back pain bilaterally. Strength testing 5/5 with dorsiflexion, plantarflexion, EHL testing and knee fl exion/extension. Increased axial pain appreciated with hip flexion extension with apprehensive movement. Sensation intact without focal deficit. No evidence of edema, erythema or skin breakdown. Neurologic: Cranial nerves grossly intact. Ambulatory function significantly guarded with positional changing from supine to sitting. Results Diagnostic Review MRI: non enhanced and reports reviewed MRI Findings: [place], [place] [phone] Magnetic Resonance Report Patient: ADARSH RUSH Date: 11/18/18 MR#: [id number]: [address] Acct ID:[id number]: Date: 1975[facility] Zip: [place] [address] Age: 43Location: 3W Sex: M Room[facility]Bed: [facility] Att Phy: Steve Paul MDDiagnosis: INTRACTABLE LUMBAR BACK PAIN Marycarmen Phy: Britt De La RosaService Date: 11/18/18 Fam Phy: Interpreting Phy: Giovani Hollins MD Admit Phy: Steve Paul MD Ordering Phy: Steve Paul MD cc: ~ MR lumbar spine wo con CLINICAL HISTORY: 43 years-old Male presenting with acute LBP; s1 dermatome numbness on left. TECHNIQUE: Multisequence, multiplanar MR imaging of the lumbar spine was performed without the use of intravenous contrast. IV contrast: None. COMPARISON: Plain radiographs from earlier today and MR from 03/21/2016. FINDINGS: Localizer images: Unremarkable. Normal lumbar lordosis. Vertebral bodies maintain normal height, alignment, and bone marrow signal intensity. Intervertebral discs preserved with the exception of L4-5, where there is mild intervertebral disc height loss accompanied by desiccation. Annular fissure is noted at this level. There is no neural foraminal or spinal canal narrowing at any of the levels apart from L4-5. At L4- 5, mild broad-based disc protrusion mildly effaces the ventral thecal sac and the lateral recesses. There is also slightly eccentric greater effacement of the right neural foramen. Mild bilateral neural foraminal narrowing minimally gr eater on the right. Spinal cord terminates in good position at T12. Cauda equina normal morphology. No paraspinal muscle edema. T2 flow-voids within the vasculature preserved. Remaining visualized soft tissues within normal limits. IMPRESSION: Focal degenerative changes at L4-5 with an annular fissure. Mild effacement of the lateral recesses and bilateral neural foramina. No evidence of severe spinal canal stenosis. Electronically signed by: Giovani Hollins M.D. 11/18/2018 8:32 PM Dictated: 11/18/182027 Transcribed: 11/18/182027 Radiology: reports reviewed Radiology Findings: [facility], [place] [phone] XRay Report Patient: ADARSH RUSH Date: 11/18/18 MR#: [id number]: [address] Acct ID:[id number]: Date: 1975[facility] Zip: [place] [address] Age: 43Location: ED Sex: M Room/Bed: Att Phy: Diagnosis: back pain Marycarmen Phy: Britt De La RosaService Date: 11/18/18 Fam Phy: Interpreting Phy: Jamison Noguera MD Admit Phy: Ordering Phy: Andrew Tracy MD cc: ~ LUMBAR SPINE 3 VIEWS HISTORY: back pain eval for fx COMPARISON: Lumbar spine 02/26/2017. FINDINGS: There is no fracture. No subluxation. Mild disc space narrowing at L4-L5 and L5-S1. This is similar to the prior study. IMPRESSION: No fracture or subluxation within the lumbar spine. Mild degenerative disc disease within the lower lumbar spine, unchanged. Electronically signed by: Jamison Noguera M.D. 11/18/2018 2:37 PM Dictated: 11/18/18 1428 Transcribed: 11/18/18 1428 Review of System Constitutional: Negative for fever, chills, sweats Eyes: Negative for eye pain, photophobia, drainage Ear, nose, mouth, throat: Negative for ear pain, nasal congestion, mouth lesions, change in voice Respiratory: Negative for wheezing, sputum production Cardiovascular: Negative for chest pain, palpitations, calf pain Gastrointestinal: Negative for abdominal pain, belching, bloating Genitourinary: Negative for dysuria, urinary incontinence, urinary urgency Musculoskeletal: Negative for deformities Integumentary: Negative for nail changes, skin yellowing, pruritus Neurological: Negative for abnormal speech, seizure type activity
[2018-11-19] MEDS: POLYETHYLENE (MIRALAX) 17 GM PACK PO SCH (09:06)
[2018-11-19] MEDS: FLUOXETINE HCL 20 MG CAP PO SCH (09:07)
[2018-11-19] MEDS: GABAPENTIN 100 MG CAP PO SCH (09:07)
[2018-11-19] MEDS: ACETAMINOPHEN 500 MG TAB PO SCH ×3 (09:08→20:59)
[2018-11-19 09:28] LABS: BUN Creatinine Ratio 19.8 (10-20); Calcium 9.2 mg/dl (8.5-10.1); Creatinine Clr Calc Pharmacy 109.2 ml/min; Est GFR (African American) 117.6; Est GFR (Non-African American) 101.5; Potassium 4.2 mmol/L (3.5-5.1)
[2018-11-19] MEDS: ONDANSETRON INJ 2 MG/ML 2 ML VIAL IV PRN (10:44)
--- NOTE | 2018-11-19 12:38 | Family Medicine Progress Note ---
Date of Service November 19, 2018 Assessment & Plan (1) Spasm of back muscles: (2) Intractable back pain: Mr. Mack is a 43 year old male with a past medical history of DJD of lumbar spine and anxiety who presented to [facility] due to intractable back pain. Intractable Back Pain Secondary to Muscle Spasm -no red flags to suggest acute cauda equina syndrome, etc. -MRI of back showed degenerative changes in L4/L5, but no herniated disk or spinal cord stenosis -d/c decadron and gabapentin given no radicular component -pain control with tylenol, toradol, k-pad heat -changed dilaudid to morphine 2mg q4h prn if the above regimen does not help -thank you to pain management for consult -> trigger point injections today into quadratus lumborum and paraspinal muscles b/l -> increased dose of baclofen to 20 mg q8h -recommend outpatient f/u with DO on d/c to continue management of back pain - this has been arranged already Anxiety -continue home fluoxetine, apparently is not compliant with this at home Code status: FULL DVT Prophylaxis: Ambulatory Disposition: anticipate d/c tomorrow or Thursday, depending on pain control (3) Myofascial pain: (4) Anxiety: Supervising Physician Co-Signing Physician Notes I personally examined pt and verified all [place] points w Dr Bartholomew. back pain seems better than when he came in, but still pretty intense. basically all localized to his back. does not have much of any radiation down legs - prior times he has, this time really none - save maybe a questionable bit of numbness on the bottom of his left foot - but what truly hurts is localized to back. hurts with movement. doesnt like how the dilauded makes him feel high. vitals noted laying in bed - alternates from nad to wincing in pain sometimes at random suggestive of spasms, other times with much of any movement. heent - nc at mmm, breathing unlabored no accessory muscles good effort. msk - surprisingly no piriformis tenderness either side, but does have quit significant paraspinal tenderness mri noted pain input appreciated intractable back pain - still quite severe, but seems improving -appears currently pain is almost entirely muscular. does have L4/5 disc bulge and some foraminal stenosis, but symptoms are not consistent with this - except for maybe faint numbness bottom L foot -pain performed trigger point injections - this should be helpful. due to this, will hold on OMT today -continue current pain meds -time (currently in hyperacute phase, anticipate this improving over next 1-2 days to where he can get home) -anticipate significant benefit from ongoing OMT as outpt - set up w Dr Gabino QUEZ[facility] -extensive discussions w pt and educating about his back pain and the difference between disc pain/radiculopathy (which he had before when pain was dominant down leg) and biomechanical/muscular (which he has now) and how both can play off of eachother ~45mins face to face time in approx 1115a, time out approx 12p all questions answered to the best of my ability and to pt/ satisfaction, seemed to express extremely good understanding; pt moderately good (but was also in significant pain at times during discussion) Subjective Mr. Mack reports his pain might be slightly improved today, and that he was able to get up and walk around, although he states walking around was excruciatingly painful. He notes that changing positions is difficult. He states the pain is approx a 6/10. He does not feel the dilaudid helps the pain, and states it instead just makes him tired. He is concerned that this is related to a herniated disk, as he has had this happen to him before. He does not feel like he can go home and take care of himself, especially as his will be at work. Review of Systems Constitutional: no fever, no chills, no fatigue, no weakness and no anorexia Cardiovascular: no chest pain and no edema Gastrointestinal: no abdominal pain, no nausea and no vomiting Musculoskeletal: + back pain Physical Exam Constitutional: well developed and well nourished; no altered mental status Respiratory: normal respiratory effort, lungs clear to auscultation Cardiovascular: Rate/Rhythm: regular rate and regular rhythm Vessels: posterior tibial pulses present and dorsalis pedis pulses present Gastrointestinal (Abdomen): normal bowel sounds, soft, nontender, no hepatosplenomegaly Musculoskeletal: tender over L4/L5, with paraspinal muscle tenderness, L>R. Pain w/left sided SLR. No tenderness to palpation of piriformis or SI joints. Neurologic: no focal motor deficits (strength 5/5 all muscle groups of B/l LEs) Results & Data Vital Signs (Past 12 Hours) Vital Signs Temp Pulse Resp BP Pulse Ox 11/19/18 07:30 36.5 C 71 20 110/70 96 PG Care Time/CCT Total # of Minutes Spent Total Time Spent with Patient: Total time spent is greater than 50% in coordination of care (as documented) at patient's floor/unit and/or counseling patient: Prolonged Care Time Prolonged Care Time: Yes Total Prolonged Care Time: 45 Resident Activity Tracking Resident Involvement: Resident Care Provided Care Provided: Adult Hospital Medicine Critical Care Time Prolonged Care Time Prolonged Care Time: Yes Total Prolonged Care Time: 45
[2018-11-19] MEDS: KETOROLAC 30 MG/ML VIAL IV PRN ×2 (13:15→19:59)
[2018-11-19] MEDS ORDERED: LORazepam 0.5 MG TAB PO PRN (13:27)
[2018-11-19] MEDS: MoRPHine SULFATE 2 MG/ML CARP IV PRN ×2 (15:55→20:58)
[2018-11-20] MEDS: MoRPHine SULFATE 2 MG/ML CARP IV PRN ×3 (00:52→10:45)
[2018-11-20] MEDS: KETOROLAC 30 MG/ML VIAL IV PRN ×2 (05:26→14:07)
[2018-11-20] MEDS: ONDANSETRON INJ 2 MG/ML 2 ML VIAL IV PRN (05:44)
[2018-11-20] MEDS: ACETAMINOPHEN 500 MG TAB PO SCH ×2 (08:05→13:30)
[2018-11-20] MEDS: BACLOFEN 10 MG TAB PO PRN (08:05)
[2018-11-20] MEDS: FLUOXETINE HCL 20 MG CAP PO SCH (08:05)
[2018-11-20] MEDS: POLYETHYLENE (MIRALAX) 17 GM PACK PO SCH (08:05)
--- NOTE | 2018-11-20 13:17 | Discharge Summary ---
Date of Service November 20, 2018 Admission HPI Per Admitting Provider 43yo male with history of lumbar spine disease s/p steroid injections in the past (2017 and earlier) who presents with acute back pain starting this am about 0930. He was moving wood at his parent's home when the pain started. The logs/wood were not heavy however he moved about 15 pieces when the pain started. Prior to this his back had been feeling well over the last few weeks/months. Pain is over the lumbar spine with some paraspinal pain on the left side. He has had groin pain on the left side starting in the ER after his x-rays were completed. He reports mild left heel discomfort/numbness. However he denies classic sciatica symptoms with pain going down the entire left leg. No numbness in other locations. Throughout the encounter he has had waves of muscle spasm and shouts out in pain/agony from such. No bowel/bladder incontinence today. No fevers or chills. Dr Palafox previously performed his lumbar steroid injections several years ago at [facility]. Patient never required surgery for his prior lumbar DJD. Admission Exam Per Admitting Provider Constitutional: well developed, well nourished and + acute distress (cries out in pain about every 2-3 minutes); no altered mental status Eyes: PERRL ENMT: external ear and nose normal, oropharynx normal Neck: trachea midline, no thyromegaly Respiratory: normal respiratory effort, lungs clear to auscultation Cardiovascular: Rate/Rhythm: regular rate and regular rhythm Heart Sounds: normal S1 and normal S2; no murmur Vessels: posterior tibial pulses present and dorsalis pedis pulses present; no JVD Gastrointestinal (Abdomen): normal bowel sounds, soft, nontender, no hepatosplenomegaly Musculoskeletal: back - no thoracic spine tenderness to palpation. Lumbar spine - exquisite pain over L4/L5 area with pain to palpation. Pain over paraspinal region on left with palpable spasm. Any movement of his left leg (passive) causes severe pain in low back. I cannot perform a straight leg raise on left due to pain. However, he denies radicular pain with passive flexion of the hip. I am able to place the right leg through normal passive ROM without discomfort. Strength all muscle groups of b/l legs 5/5 including hip flexion, knee extension, and ankle dorsiflexion/plantarflexion. Skin: no rashes, warm and dry tattoos present Neurologic: deep tendon reflexes 2+ bilaterally (patellar and achilles b/l (modestly brisk b/l)); no focal motor deficits (strength 5/5 all muscle groups of B/l LEs) Motor/Sensory: + sensory deficit (left heel w/ decreased sensation) sensation nl to light touch L3, L4, L5 dermatomes Principal Diagnosis Intractable low lumbar back pain Discharge Exam Constitutional WD/WN, vitals as above comfortable Eyes EOM intact bilaterally Neck normal visual inspection and trachea midline Respiratory normal respiratory effort, lungs clear to auscultation Cardiovascular RRR, no murmur, no edema Gastrointestinal (Abdomen) Inspection/Auscultation: normal bowel sounds Percussion/Palpation: abdomen soft; abdomen nontender, no guarding and abdomen not rigid Musculoskeletal Head/Neck/Chest: normocephalic and head atraumatic Extremities: extremities normal to inspection right sided paraspinal hypertonicity to lumbar area without tenderness to palpation Skin no rashes, warm and dry Neurologic moves all extremities and awake Psychiatric A+Ox3, euthymic affect Discharge Data Allergies Allergy/AdvReac Type Severity Reaction Status Date / Time No Known Allergies Allergy Unverified 11/18/18 13:07 Consultations 11/18/18 16:12 ED Decision to Admit Stat 11/18/18 18:49 Consult Pain Management Routine Ordered Studies 11/18/18 18:49 MR lumbar spine wo con Routine FINDINGS: Localizer images: Unremarkable. Normal lumbar lordosis. Vertebral bodies maintain normal height, alignment, and bone marrow signal intensity. Intervertebral discs preserved with the exception of L4-5, where there is mild intervertebral disc height loss accompanied by desiccation. Annular fissure is noted at this level. There is no neural foraminal or spinal canal narrowing at any of the levels apart from L4-5. At L4- 5, mild broad-based disc protrusion mildly effaces the ventral thecal sac and the lateral recesses. There is also slightly eccentric greater effacement of the right neural foramen. Mild bilateral neural foraminal narrowing minimally greater on the right. Spinal cord terminates in good position at T12. Cauda equina normal morphology. No paraspinal muscle edema. T2 flow-voids within the vasculature preserved. Remaining visualized soft tissues within normal limits. IMPRESSION: Focal degenerative changes at L4-5 with an annular fissure. Mild effacement of the lateral recesses and bilateral neural foramina. No evidence of severe spinal canal stenosis. Hospital Course (1) Spasm of back muscles: (2) Intractable back pain: Mr. Mack is a 43 year old male with a past medical history of DJD of lumbar spine and anxiety who presented to [facility] due to intractable back pain. He was treated with analgesic pain medication, baclofen, and had triggerpoint injections performed by pain management while here. Injections were to: Right lumbar paravertebral 2, left paravertebral X2, right quadratus lumborum x2, left quadratus lumborum x2. He had no red flags to suggest acute cauda equina syndrome, etc. -MRI of back showed degenerative changes in L4/L5, but no herniated disk or spi nal cord stenosis -He received decadron and gabapentin but this was discontinued given no radicular component -pain control provided during hospitalization with tylenol, toradol, k-pad heat, and Dilaudid which was changed to IV morphine 2mg q4h. He will be discharged home with oxycodone 5mg PO q8h #20. He also was given a eRx for Baclofen 20mg q8h PRN. Outpatient follow up appointment was made with Osteopathic Physician, Dr. Andrew Lloyd for continued management and osteopathic manipulative expertise. Anxiety -continue home fluoxetine, apparently is not compliant with this at home, stressed compliance Code status: FULL DVT Prophylaxis: Ambulatory (3) Myofascial pain: (4) Anxiety: continue home prozac he admits to noncompliance with this medication at home Total Time Total Time Spent Total Time Spent (In Minutes): 30 Total Time Includes: Examination of the Patient, Discharge Planning, Medication Reconciliation and Communication With Other Providers Discharge Plan Discharge Items Patient Disposition: Home - Self-Care Reason For Visit: INTRACTABLE LUMBAR BACK PAIN Discharge Diagnosis: Intractable Lumbar Back Pain Discharge Goals: Decrease discomfort, Improve function and Increase independence Activity: Per 'Additional Instructions' section Non-emergency contact: Primary Care Provider Call non-emergency contact if: you have any medication questions, your symptoms worsen and your pain is concerning for you Follow-up/Referrals: Andrew Lloyd DO [Resident] - 11/22/18 1:10 pm (Please, follow up with PALOMA De La Rosa's associate, Dr. Andrew Lloyd, on ThursdayNovember 22 at 1:[address] Lloyd is trained is osteopathic manipulative therapy. THIS APPOINTMENT WILL BE IN THE [facility]. THE ADDRESS IS [address] [place] [address] IN [place]. *If you need to change this appointment, call the office at [phone].) Diet: Regular Addtl Provider Instructions: You were seen and evaluated for severe lumbar back pain. This was treated with anti-inflammatories, pain medication, and trigger point injections. Please return to previous activity levels as tolerated. Avoid any strenuous activities that might aggravate your back pain. A MRI of your low back was performed to rule out any process that would require emergent or urgent surgery to prevent loss of function. There were no findings that showed a clear cause for your pain. You most likely had a somatic dysfunction of your lumbar spine that was preventing the normal range of motion of your lumbar vertebral spine. This could be caused by muscle spasm. You will still experience pain while your body recovers. Please return to activity as tolerated. Make sure to make your follow up appointment. Prescriptions: New baclofen 20 mg tablet 20 mg PO Q8H PRN (Reason: low back pain) Qty: 20 RF: 0 oxycodone 5 mg tablet 5 mg PO Q8H PRN (Reason: pain) Qty: 20 RF: 0 Continued hydrocodone-acetaminophen [[place]] 5-325 mg Tablet 1 tab PO UD PRN (Reason: Pain) RF: 0 fluoxetine 20 mg capsule 20 mg PO QAM RF: 0 Stand-Alone Forms: [facility] [place] [facility]/Other Patient Handouts: Back Pain Relieve, Basics Back Healthy Spine, Lumbar Pain Causes Discharge Orders: Discharge Order (Routine); Ordered 11/20/18 Ordered By: Charly Simpson Admission Data Admit Date/Time: 11/18/18 17:05 Attending Provider: [place] Admit Provider: Steve Paul Primary Care Provider: Britt De La Rosa Other Providers: Steve Paul ; Wyatt Norris Service: Medical Other Interventions: Discharge Summary Assessment (RN) Last Done: 11/20/18 13:55 DC Date/Time DO NOT enter until pt leaves facility: 11/20/18 14:29 Supervising Physician Co-Signing Physician Notes I personally examined pt and verified all [place] points w resident provider. back pain seems better today. Patient is agreeable to discharge. Patient will be discharged on intermittent opiates with baclofen as well. heent - nc at mmm, breathing unlabored no accessory muscles good effort. msk - surprisingly no piriformis tenderness either side, mild paraspinal tenderness mri noted pain input appreciated intractable back pain - seems improving -appears currently pain is almost entirely muscular. does have L4/5 disc bulge and some foraminal stenosis, but symptoms are not consistent with this - except for maybe faint numbness bottom L foot -appears trigger point injections helped. ok for discharge 32 mins for discharge Resident Activity Tracking Resident Involvement: Resident Care Provided Care Provided: Adult Hospital Medicine
== END 2018-11-20 14:29 | disposition home or self-care (01) ==
LOC: 3W 12:23 → ED 12:23 → SUATTDRO 17:05 → 3W 18:27